=== PATIENT | female | born 1980 | race Caucasian/White ===

== ENCOUNTER 2017-04-17 17:52 | Emergency (ER) | payer SELFPAY ==
[2017-04-17 21:25] LABS: #Lymphocytes 1.1 thou/uL (1.20-3.40); #Monocytes 0.8 thou/uL (0.11-0.59); #Neutrophils 10.2 thou/uL (1.40-6.50); %Basophils 0.2 % (0.0-1.0); %Eosinophils 0.1 % (0.0-10.0); %Lymphocytes 8.8 % (21.0-51.0); %Monocytes 6.7 % (0.0-10.0); Hematocrit 40.4 % (36.0-47.0); Mean Platelet Volume 6.9 fL (7.4-10.4); White Blood Cell (WBC) Count 12.1 thou/uL (4.8-10.8)
[2017-04-17 21:26] LABS: PTT 26.8 SEC (22.9-36.1); Prothrombin Time 14.4 SEC (12.0-14.7)
[2017-04-17 21:38] LABS: Bilirubin Negative (Negative); Blood, Urine Negative (Negative); Glucose, Urine (Dipstick) Negative (Negative); Ketone, Urine Trace mg/dL (Negative); Nitrite Negative (Negative); Protein, Urine (Dipstick) 30 mg/dL (Neg-Trace); Urobilinogen 0.2 mg/dL (0.2-1.0)
[2017-04-17] MEDS ORDERED: Lorazepam 2 MG/ML VIAL ONE (21:41)
[2017-04-17] MEDS ORDERED: Ondansetron HCl/PF 4 MG/2 ML Vial ONE (21:41)
[2017-04-17] MEDS ORDERED: Fentanyl 100 MCG/2 ML VIAL ONE (21:41)
[2017-04-17] MEDS ORDERED: Metoclopramide HCl 10 MG/2 ML VIAL ONE (21:41)
[2017-04-17 21:42] LABS: ALT (SGPT) 22 U/L (8-55); AST (SGOT) 19 U/L (5-34); Alkaline Phosphatase 119 U/L (40-150); Anion Gap 16 mmol/L (10-20); BUN (Urea Nitrogen) 12 mg/dL (7.0-18.7); Bilirubin, Total 0.4 mg/dL (0.2-1.2); CK (CPK) 43 U/L (29-168); Calc. Creatinine Clearance 0 mL/min (70-130); Calcium 9.4 mg/dL (7.8-10.44); Carbon Dioxide 25 mmol/L (22-29); Chloride 101 mmol/L (98-107); Estimated GFR-MDRD 73; Protein, Total 8.1 g/dL (6.0-8.3)
[2017-04-17 21:52] LABS: Bacteria/HPF None Seen HPF (None Seen); Hyaline Casts/LPF 0-3 HYALINE CAST LPF (0-3 Hyaline); RBC/HPF 0-3 HPF (0-3); Squamous Epithelial 0-3 HPF (0-3); WBC/HPF 0-3 HPF (0-3)
[2017-04-17 23:24] LABS: CSF, Glucose 73 mg/dl (40-70)
[2017-04-17 23:35] LABS: Bilirubin Negative (Negative); Blood, Urine Negative (Negative); Glucose, Urine (Dipstick) Negative (Negative); Ketone, Urine Negative (Negative); Nitrite Negative (Negative); Protein, Urine (Dipstick) 30 mg/dL (Neg-Trace)
[2017-04-17 23:38] LABS: Bacteria/HPF Rare-Few HPF (None Seen); Hyaline Casts/LPF 0-3 HYALINE CAST LPF (0-3 Hyaline); RBC/HPF 0-3 HPF (0-3); WBC/HPF 0-3 HPF (0-3)
[2017-04-17] MEDS ORDERED: Acetaminophen 500 MG TAB ONE (23:51)
[2017-04-18] MEDS ORDERED: Ibuprofen 800 MG TAB ONE (00:42)
== END 2017-04-18 00:47 | disposition home or self-care (01) ==
LOC: ERS 17:52
DX: R50.9 Fever, unspecified (principal); R51 Headache; I10 Essential (primary) hypertension; J45.909 Unspecified asthma, uncomplicated; F41.9 Anxiety disorder, unspecified
CPT/HCPCS: 62270; 80053; 81003; 81015; 82550; 82570; 82945; 83605; 84156; 84157; 84703; 85025; 85610; 85652; 85730; 87040; 87070; 87205; 89051; 96361; 96374; 96375; J2060; J2405; J2765; J3010

== ENCOUNTER 2017-09-12 19:14 | Emergency (ER) | payer SELFPAY ==
[2017-09-12] MEDS ORDERED: Ibuprofen 200 MG TAB ONE (19:42)
== END 2017-09-12 20:33 | disposition home or self-care (01) ==
LOC: ERS 19:14
DX: J02.9 Acute pharyngitis, unspecified (principal); M19.90 Unspecified osteoarthritis, unspecified site; G43.909 Migraine, unspecified, not intractable, without status migrainosus; J45.909 Unspecified asthma, uncomplicated; F41.9 Anxiety disorder, unspecified
CPT/HCPCS: 87081; 87430; 99283

== ENCOUNTER 2017-09-30 09:58 | Emergency (ER) | payer SELFPAY, OTHER ==
--- NOTE | 2017-09-30 12:00 | RAD ---
PA AND LATERAL CHEST: Date: 09/30/17 HISTORY: Cough. FINDINGS: Heart size is borderline. Mediastinal structures are unremarkable. Lungs are clear of infiltrates. No significant bony findings. IMPRESSION: Borderline heart size. POS: [facility]
[2017-09-30] MEDS ORDERED: Acetaminophen 500 MG TAB ONE (12:15)
== END 2017-09-30 13:00 | disposition home or self-care (01) ==
LOC: ERS 09:58
DX: J20.9 Acute bronchitis, unspecified (principal); I10 Essential (primary) hypertension; M19.90 Unspecified osteoarthritis, unspecified site; G43.909 Migraine, unspecified, not intractable, without status migrainosus; J45.909 Unspecified asthma, uncomplicated; F41.9 Anxiety disorder, unspecified; F32.9 Major depressive disorder, single episode, unspecified
CPT/HCPCS: 71046; 87804; 94640; J7620

== ENCOUNTER 2018-01-08 15:18 | Emergency (ER) | payer OTHER, SELFPAY ==
[~2018-01-08 15:18] MED LIST: ISOVUE-370 76%-LOCM 1 ML ONE
[2018-01-08 16:21] LABS: #Eosinphils 0.2 thou/uL (0.0-0.7); #Lymphocytes 2.1 thou/uL (1.20-3.40); #Monocytes 0.8 thou/uL (0.11-0.59); #Neutrophils 8.6 thou/uL (1.40-6.50); %Basophils 0.2 % (0.0-1.0); %Eosinophils 1.4 % (0.0-10.0); %Lymphocytes 17.7 % (21.0-51.0); %Monocytes 6.8 % (0.0-10.0); %Neutrophils 73.9 % (42.0-75.0); Hemoglobin 14.2 g/dL (12.0-16.0); Mean Corpuscular HGB CONC 34.1 g/dL (32.0-36.0); Mean Corpuscular Hemoglobin 28.7 pg (27.0-31.0); Mean Corpuscular Volume 84.2 fl (81.0-99.0); Mean Platelet Volume 7.3 fL (7.4-10.4); Platelet Count 232 thou/uL (130-400); Red Blood Cell (RBC) Count 4.95 mill/uL (4.20-5.40); White Blood Cell (WBC) Count 11.7 thou/uL (4.8-10.8)
[2018-01-08 16:22] LABS: Bilirubin Negative (Negative); Blood, Urine Negative (Negative); Clarity CLEAR (Clear); Glucose, Urine (Dipstick) Negative (Negative); Leukocyte Negative (Negative); Nitrite Negative (Negative); Protein, Urine (Dipstick) Negative (Neg-Trace); Specific Gravity, Urine 1.023 (1.002-1.036); Urobilinogen 0.2 mg/dL (0.2-1.0)
[2018-01-08 16:23] LABS: Pregnancy Test - Urine (BHCG) Negative (Negative); Pregu Control Background? CLEAR/WHITE (CLR/WHITE); Pregu Control Bar Appear? YES (CONTROL BAR); Specific Gravity 1.023 (1.002-1.036)
[2018-01-08 16:43] LABS: ALT (SGPT) 19 U/L (8-55); AST (SGOT) 16 U/L (5-34); Albumin 4.2 g/dL (3.5-5.0); Alkaline Phosphatase 133 U/L (40-150); Anion Gap 14 mmol/L (10-20); BUN (Urea Nitrogen) 13 mg/dL (7.0-18.7); Bilirubin, Total 0.4 mg/dL (0.2-1.2); Calc. Creatinine Clearance 0 mL/min (70-130); Calcium 9.3 mg/dL (7.8-10.44); Carbon Dioxide 24 mmol/L (22-29); Chloride 102 mmol/L (98-107); Estimated GFR-MDRD Greater than 90; Globulin 3.9 g/dL (2.4-3.5); Glucose 114 mg/dL (70-105); Lipase 46 U/L (8-78); Potassium 3.5 mmol/L (3.5-5.1); Protein, Total 8.1 g/dL (6.0-8.3); Sodium 136 mmol/L (136-145)
[2018-01-08] MEDS ORDERED: Ondansetron ODT 4 MG TAB ONE (17:04)
--- NOTE | 2018-01-09 09:18 | CT ---
CT ABDOMEN WITH CONTRAST CT PELVIS WITH CONTRAST: HISTORY: A 37-year-old female with lower abdominal pain. TECHNIQUE: IV CONTRAST: Isovue-370 100 mL ORAL CONTRAST: Not administered. FINDINGS: Normal appendix, liver, adrenals, kidneys, pancreas, and spleen. No colonic diverticulitis. No small bowel dilation. No free fluid or free air. There are bilateral Essure fallopian tube closure devices. IMPRESSION: No major pathology POS: [facility]
== END 2018-01-08 18:52 | disposition home or self-care (01) ==
LOC: ERS 15:18
DX: R10.30 Lower abdominal pain, unspecified (principal); R19.7 Diarrhea, unspecified; I10 Essential (primary) hypertension; F41.9 Anxiety disorder, unspecified; F32.9 Major depressive disorder, single episode, unspecified; Z79.899 Other long term (current) drug therapy
CPT/HCPCS: 36415; 74177; 80053; 81003; 81025; 83690; 85025; 96360; 96361; 96372; Q0162